=== PATIENT | female | born 1940 | race Caucasian/White ===

== ENCOUNTER 2017-10-27 06:00 | Day surgery (SDC) | payer OTHER ==
[~2017-10-27 06:00] MED LIST: ASA81 MG PO; COZAAR50 MG PO; ELIQUIS2.5 MG PO; HYDROCHLOROTHIA25 MG PO; METOPROLOL SUCC25 MG PO; NITROGLYCERIN0.4 MG SL; NORVASC2.5 M1 PO; OSTERA TABLET1 EACH PO; SYNTHROID50 MCG PO; SYNTHROID75 MCG PO; ZOCOR20 MG PO
== END 2017-10-27 13:20 | disposition home or self-care (01) ==
LOC: CIR.AMB 06:00
DX: H71.22 Cholesteatoma of mastoid, left ear (principal)